=== PATIENT | male | born 1955 | race Caucasian/White ===

== ENCOUNTER 2017-12-31 07:14 | Inpatient (IN) | payer OTHER ==
[2017-12-24 16:40] LABS: BASOPHILS % (AUTO) 0.8 % (0-1); EOSINOPHILS # (AUTO) 0.3 X10'3 (0-0.9); EOSINOPHILS % (AUTO) 4.8 % (0-6); LYMPHOCYTES # (AUTO) 1.2 X10'3 (1.1-4.8); LYMPHOCYTES % (AUTO) 21.3 % (21-51); MEAN CORPUSCULAR HGB CONC 33.7 % (33.0-36.5); MEAN CORPUSCULAR VOLUME 83.1 FL (78-98); MEAN PLATELET VOLUME 8.2 FL (7.4-10.4); MONOCYTES # (AUTO) 0.4 X10'3 (0-0.9); MONOCYTES % (AUTO) 6.2 % (2-12); NEUTROPHILS # (AUTO) 3.9 X10'3 (1.8-7.7); NEUTROPHILS % (AUTO) 66.9 % (42-75); PRE OP HEMATOCRIT 41.5 % (42.0-52.0); PRE OP PLATELET COUNT 217 X10'3 (140-440); RED BLOOD COUNT 4.99 X10'6 (4.70-6.10); RED CELL DISTRIBUTION WIDTH 14.1 % (11.5-14.5)
[2017-12-24 16:44] LABS: CLARITY,URINE CLEAR (Clear); COLOR,URINE YELLOW (Yellow); GLUCOSE, URINE NEGATIVE (Neg); KETONES,URINE NEGATIVE (Neg); LEUKOCYTE ESTERASE ,URINE NEGATIVE (Neg); NITRITES, URINE NEGATIVE (Neg); OCCULT BLOOD,URINE NEGATIVE (Neg); PROTEIN,URINE NEGATIVE (Neg); UA COLLECTION TYPE NON-SPECIFIED; UROBILINOGEN,URINE 0.2 E.U/dL (0.2-1.0)
[2017-12-24 16:55] LABS: ALBUMIN 3.9 G/DL (3.4-5.0); ALBUMIN/GLOBULIN RATIO 1.3 (1.1-1.5); ALKALINE PHOSPHATASE 109 IU/L (46-116); BLOOD UREA NITROGEN 12 MG/DL (7-18); BUN/CREATININE RATIO 12.4 (5.4-32.0); CALCIUM 9.2 MG/DL (8.5-10.1); CHLORIDE 103 MMOL/L (99-107); CREATININE 0.97 MG/DL (0.60-1.10); PRE OP ALT 34 U/L (30-65); PRE OP ANION GAP 9 (8-16); PRE OP AST 32 U/L (10-37); PRE OP BILIRUB, TOTAL 0.3 MG/DL (0.0-1.0); PRE OP GLUCOSE 104 MG/DL (70-104); PRE OP POTASSIUM 3.9 MMOL/L (3.4-5.1); PRE OP SODIUM 139 MMOL/L (135-145); TOTAL CARBON DIOXIDE 26.9 MMOL/L (24-32); TOTAL PROTEIN 6.9 G/DL (6.4-8.2); eGFR 79 ML/MIN
[2017-12-31] VITALS (11 sets, daily range): BP systolic 113–134; BP diastolic 59–93
[~2017-12-31] VITALS: Ht 172.7 cm; Wt 62.4 kg
[~2017-12-31 07:14] MED LIST: BUPIVAcaine/PF 2.5mg/ml (0.25%) 10ml vial ONE; CHOL10002 PO; OMEG-82 PO; VITA1TAB20 PO; ceFAZolin 1000mg inj ONE; ceFOXitin 2 GM ADDvantage bag 100 ML IV ONE; famotidine 20mg tablet PO ONE; ringers solution, lacted 1,000 ML IV SCH
[2017-12-31] MEDS ORDERED: BUPIVAcaine/PF 2.5mg/ml (0.25%) 10ml vial ONE (08:02)
[2017-12-31] MEDS ORDERED: fentaNYL /PF 50mcg/ml 5ml ampule ONE (08:45)
[2017-12-31] MEDS ORDERED: midazolam 2 mg/2 ml injection ONE (08:45)
[2017-12-31] MEDS ORDERED: LIDOcaine 2% (20mg/ml) 5ml vial ONE (08:55)
[2017-12-31] MEDS ORDERED: propofol 10mg/ml 20ml vial IV ONE (08:55)
[2017-12-31] MEDS ORDERED: sevoflurane 250ml liquid IH ONE (08:55)
[2017-12-31] MEDS ORDERED: ringers solution, lacted 1,000 ML IV SCH (08:56)
[2017-12-31] MEDS ORDERED: ondansetron/PF 4mg/2ml inj ONE (09:00)
[2017-12-31] MEDS ORDERED: dexamethasone sod phosphate 4mg/ml inj. ONE (09:00)
[2017-12-31] MEDS ORDERED: morphine 4 MG/ML inj SYRINge IV PRN ×2 (09:00)
[2017-12-31] MEDS ORDERED: ROPIVAcaine 0.5% (5mg/ml) 30ml vial ONE (09:00)
[2017-12-31] MEDS ORDERED: glycopyrrolate 0.2mg/ml inj ONE (09:00)
[2017-12-31] MEDS ORDERED: rocuronium 10mg/ml inj IV ONE (09:00)
[2017-12-31] MEDS ORDERED: meperidine/PF 25mg/ml syringe IV PRN ×3 (09:00)
[2017-12-31] MEDS ORDERED: neostigmine methylsulfate 1 MG/ML 10ml vial ONE (09:00)
[2017-12-31] MEDS ORDERED: proCHLORperazine 10 MG/2 ml inj IV PRN (09:00)
[2017-12-31] MEDS ORDERED: ondansetron/PF 4mg/2ml inj IV PRN (09:00)
== END 2017-12-31 20:30 | disposition home or self-care (01) | DRG 330 ==
LOC: PAS IN 07:14 → EDSTATUS 09:15
PROVIDERS: ADMIT Surgery; ATTEND Surgery
PROC: 0PP904Z Removal of Internal Fixation Device from Right Clavicle, Open Approach (ICD-10-PCS; 2017-12-31)
PROC: 0DTJ4ZZ Resection of Appendix, Percutaneous Endoscopic Approach (ICD-10-PCS; principal; 2017-12-31 08:55)
PROC: 0DBH4ZZ Excision of Cecum, Percutaneous Endoscopic Approach (ICD-10-PCS; 2017-12-31 08:55)
DX: D12.0 Benign neoplasm of cecum (principal); T84.84XA Pain due to internal orthopedic prosthetic devices, implants and grafts, initial encounter; M19.90 Unspecified osteoarthritis, unspecified site; D12.1 Benign neoplasm of appendix; Y83.1 Surgical operation with implant of artificial internal device as the cause of abnormal reaction of the patient, or of later complication, without mention of misadventure at the time of the procedure; J30.1 Allergic rhinitis due to pollen; Z79.899 Other long term (current) drug therapy; Y92.89 Other specified places as the place of occurrence of the external cause
CPT/HCPCS: 36415; 73020; 80053; 81003; 85025; 86885; 86900; 86901; 93005; A7000; C1758; J0690; J0694; J1100; J2001; J2250; J2405; J2704; J2710; J2795; J3010; J3490; J7120